=== PATIENT | female | born 1965 | race Hispanic/Latino ===

== ENCOUNTER 2023-10-13 12:18 | Emergency (ER) | payer BC, OTHER ==
[~2023-10-13] VITALS: Ht 157.5 cm; Wt 87.1 kg
[2023-10-13] MEDS: HYDROCODONE/ACETAMINOPHEN 5/325 MG TAB PO ONE (12:39)
[2023-10-13] MEDS: HYDROCODONE/ACETAMINOPHEN 5/325 MG TAB ONE (12:43)
[2023-10-13 13:57] VITALS: BP 129/80; PULSE 72; RESP 16; O2SAT 97
== END 2023-10-13 14:10 | disposition home or self-care (01) ==
LOC: EDH 12:18
DX: M25.561 Pain in right knee (principal); M25.562 Pain in left knee; M25.512 Pain in left shoulder; I10 Essential (primary) hypertension; Z90.710 Acquired absence of both cervix and uterus; Z98.890 Other specified postprocedural states; Z88.8 Allergy status to other drugs, medicaments and biological substances
CPT/HCPCS: 71045; 72170; 73030; 73562